=== PATIENT | male | born 1965 | race Caucasian/White ===

== ENCOUNTER 2016-09-27 06:58 | Emergency (ER) | payer OTHER ==
[~2016-09-27] VITALS: Ht 175.3 cm; Wt 77.3 kg
[2016-09-27 07:47] VITALS: BP 152/100
== END 2016-09-27 08:18 | disposition home or self-care (01) ==
LOC: EMS 07:00
DX: H11.32 Conjunctival hemorrhage, left eye (principal); F17.210 Nicotine dependence, cigarettes, uncomplicated
CPT/HCPCS: 99282